=== PATIENT | male | born 1975 | race African-American/Black ===

== ENCOUNTER 2022-08-29 13:09 | Emergency (ER) | payer SELFPAY ==
[2022-08-29] MEDS ORDERED: Ketorolac Tromethamine 30 MG/ML VIAL ONE (14:02)
== END 2022-08-29 14:22 | disposition home or self-care (01) ==
LOC: CSHERS 13:09
DX: K40.90 Unilateral inguinal hernia, without obstruction or gangrene, not specified as recurrent (principal)
CPT/HCPCS: 96372; 99283; J1885